=== PATIENT | female | born 2000 | race Caucasian/White ===

== ENCOUNTER 2022-07-04 01:50 | Emergency (ER) | payer MEDICAID ==
[~2022-07-04] VITALS: Ht 160 cm; Wt 68.0 kg
[2022-07-04 02:19] VITALS: BP 110/61
== END 2022-07-04 03:35 | disposition home or self-care (01) ==
LOC: ER 01:50
DX: H10.213 Acute toxic conjunctivitis, bilateral (principal)
CPT/HCPCS: 99281